=== PATIENT | male | born 2000 | race Caucasian/White ===

== ENCOUNTER 2019-01-11 08:31 | Emergency (ER) | payer OTHER ==
[~2019-01-11] VITALS: Ht 182.9 cm; Wt 88.0 kg
[~2019-01-11 08:31] MED LIST: LEVE-5 PO
[2019-01-11 08:34] VITALS: Ht 182.9 cm; Wt 88.0 kg
[2019-01-11] MEDS ORDERED: LEVETIRACETAM 1000 MG (PMX) 100 ML IVPB STA (08:48)
[2019-01-11] MEDS ORDERED: SOD CHLORIDE 0.9% 1,000 ML IV STA (08:48)
[2019-01-11] MEDS ORDERED: ACETAMINOPHEN 325 MG TAB PO STA (08:48)
[2019-01-11] MEDS ORDERED: ONDANSETRON 4 MG INJ IV STA (08:51)
[2019-01-11] MEDS ORDERED: LIDOCAINE 1% (MDV) 20 ML INJ INJ ONE (09:00)
[2019-01-11] MEDS ORDERED: LIDOCAINE 4% CR TOP ONE (09:00)
--- NOTE | 2019-01-11 09:28 | ERD ---
ER Documentation Chief Complaint Chief Complaint POSSIBLE SEIZURE, LAS RIGHT EYE LID LAC, HAD X2 SEIZURES IN JUL, NOT HAVE A HPI 18-year-old male who presents to the emergency room with possible seizure. The patient has had approximately 3 seizures this year without neurology follow-up. He apparently woke up around 7 AM and is walking to his grandmother's room when he was found on the ground postictal with gradual improvement. The patient sustained a laceration within the upper eyelid just inferior to the eyebrow of the right periorbital region. Patient is describing mild headache and dry mouth. He states that he uses marijuana but no other drugs. Patient denies any prodrome of headache chest pain or shortness of breath. No fevers or chills. No family history of seizure. ROS All systems reviewed and are negative except as per history of present illness. Medications Home Meds Active Scripts Levetiracetam* (Keppra*) 500 Mg Tablet, 500 MG PO BID for 30 Days, TAB Prov:SHANON TY MD 01/11/19 Allergies Allergies: Coded Allergies: No Known Allergy (Unverified , 01/11/19) PMhx/Soc History of Surgery: No Anesthesia Reaction: No Hx Neurological Disorder: Yes (2 previous seizure, has not been diagnosed) Hx Respiratory Disorders: No Hx Cardiac Disorders: No Hx Psychiatric Problems: No Hx Miscellaneous Medical Probl: No Hx Alcohol Use: No Hx Substance Use: Yes (marijuana) Hx Tobacco Use: No Smoking Status: Never smoker FmHx Family History: No diabetes Physical Exam Vitals Vital Signs Date Temp Pulse Resp B/P (MAP) Pulse Ox O2 O2 Flow FiO2 Time Delivery Rate 01/11/19 98.1 76 18 130/79 99 08:34 (96) Physical Exam Airway is intact Bilateral breath sounds Strong distal pulses No obvious deficits General: Well developed, well nourished, no acute distress Head: Superficial laceration approximately 2 cm obliquely to the upper eyelid just inferior to the eyebrow of the right periorbital region. The base of the wound is easily visualized. No foreign body. Eyes: Pupils equally reactive, EOM intact ENT: Moist mucous membranes Neck: Supple, no lymphadenopathy, No midline tenderness, deformities, step-offs to the cervical spine, full active and passive range of motion without midline pain. Respiratory: Lungs clear bilaterally, no distress, no chest wall tenderness, no crepitus Cardiovascular: RRR, no murmurs, rubs, or gallops Abdominal: Soft, non-tender, non-distended, no peritoneal signs, pelvis is stable : Deferred MSK: No edema, no unilateral swelling, 5/5 strength, no midline tenderness deformities or step-offs to the thoracolumbar spine Neurologic: Alert and oriented, moving all extremities, normal speech, no focal weakness, no cerebellar signs Skin: No ecchymoses or bruising to the chest or abdomen Psych: Normal mood Result Diagram: 01/11/1990001/11/19900 Results 24 hrs Laboratory Tests Test 01/11/19 09:01 White Blood Count 9.0 10^3/ul Red Blood Count 5.41 10^6/ul Hemoglobin 15.8 g/dl Hematocrit 46.4 % Mean Corpuscular Volume 85.8 fl Mean Corpuscular Hemoglobin 29.2 pg Mean Corpuscular Hemoglobin Concent 34.1 g/dl Red Cell Distribution Width 11.9 % Platelet Count 235 10^3/UL Mean Platelet Volume 8.7 fl Immature Granulocytes % 0.400 % Neutrophils % 67.2 % Lymphocytes % 21.5 % Monocytes % 7.5 % Eosinophils % 3.0 % Basophils % 0.4 % Nucleated Red Blood Cells % 0.0 /100WBC Immature Granulocytes # 0.040 10^3/ul Neutrophils # 6.0 10^3/ul Lymphocytes # 1.9 10^3/ul Monocytes # 0.7 10^3/ul Eosinophils # 0.3 10^3/ul Basophils # 0.0 10^3/ul Nucleated Red Blood Cells # 0.0 10^3/ul Sodium Level 141 mmol/L Potassium Level 4.1 mmol/L Chloride Level 104 mmol/L Carbon Dioxide Level 28 mmol/L Anion Gap 9 Blood Urea Nitrogen 16 mg/dl Creatinine 1.09 mg/dl Est Glomerular Filtrat Rate mL/min > 60 mL/min Glucose Level 101 mg/dl Calcium Level 9.9 mg/dl Ethyl Alcohol Level < 10.0 mg/dl Current Medications Medications Dose Sig/Stefanie Start Time Status Last (Trade) Ordered Route PRN Stop Time Admin Dose Reason Admin Sodium 1,000 ml @ Q1H STAT 01/11/19 DC 01/11/19 Chloride 1,000 mls/hr IV 08:48 01/11/19 09:06 09:47 650 mg ONCE STAT 01/11/19 DC 01/11/19 Acetaminophen PO 08:48 01/11/19 09:07 (Tylenol 08:52 Tab) Lidocaine ONCE ONCE 01/11/19 DC (Xylocaine INJ 09:00 01/11/19 1% (Mdv) 20 09:01 ml) 100 ml @ ONCE STAT 01/11/19 DC Levetiracetam 400 mls/hr IVPB 08:48 01/11/19 09:02 Ondansetron 4 mg ONCE STAT 01/11/19 DC 01/11/19 HCl (Zofran IV 08:51 01/11/19 09:07 Inj) 08:52 Lidocaine 1 applic ONCE ONCE 01/11/19 DC 01/11/19 (Lmx 4% Plus) TOP 09:00 01/11/19 09:07 09:01 Procedures/MDM EKG, MONITORS, & DIAGNOSTIC IMAGING: EKG: I reviewed and interpreted a 12-lead EKG. Rhythm: Normal sinus rhythm, normal QRS and QTc ST Changes: No contiguous ST segment elevations T waves: No contiguous T wave inversions Impression: No evidence of acute cardiac ischemia CT brain: No acute process per radiologist read CT facial bone: no acute process per radiologist read PROCEDURES: Laceration Note: Location: Right periorbital region The patient was verbally consented prior to procedure and understands the risks, benefits, and alternatives. The patient is agreeable to procedure and has given verbal consent. Length: 2.0 cm Irrigation: Thorough irrigation was performed with pressure is normal saline Inspection: There is no evidence of deep tissue or structural injury, no evidence of foreign bodies Anesthesia: LMX cream Repair: Single layer repair using 5.0 Prolene a total of 3 sutures with excellent approximation. A clean dressing was applied. The patient tolerated the procedure well with no complications. LAB INTERPRETATION: I reviewed the laboratory testing and it shows no evidence of acute process MEDICAL DECISION MAKING: patient presents to the emergency room with what appears to be a seizure. This is now his third seizure within the first part of this year. The patient does not have outpatient follow-up with a neurologist. This seems to be consistent with a primary seizure disorder. Initiation of outpatient oral medication will be reasonable. The patient will benefit from Keppra given low risk profile. Patient has sustained a laceration to the right periorbital region. CT imaging of the head and facial bones will be reasonable given evidence of blunt trauma. The patient does not meet high-risk criteria and based on NEXUS cervical spine criteria there is no indication for cervical spine imaging at this time. Tetanus is up-to-date. ER COURSE: * Seizure precautions initiated. Patient loaded with a gram of Keppra * Localized wound care provided and laceration repair as documented above. * Patient given Tylenol for his headache. * Lapse of consciousness document filled out * Patient informed the needs to follow-up with a neurologist. * Laboratory testing and diagnostic imaging was unrevealing. The patient remains at baseline. Patient is safe for discharge. * Suture removal in 5 days CONSULTATION: None DISPOSITION PLAN: The patient does not have an identifiable emergent medical condition that warrants inpatient hospitalization at this time. The patient is deemed safe for discharge with outpatient follow-up. We discussed follow up with the patient's primary care doctor within 24 to 48 hours as needed. We also discussed return to the emergency room for worsening symptoms or worsening condition. Outpatient referral: Neurology Discharge Medications: Keppra 500 twice daily Departure Diagnosis: Primary Impression: Seizure disorder Additional Impression: Eyelid laceration, right Encounter type: initial encounter Qualified Codes: S01.111A - Laceration without foreign body of right eyelid and periocular area, initial encounter Condition: Stable SHANON TY MD Jan 11, 2019 09:28
[2019-01-11 10:45] VITALS: BP 113/78; PULSE 50; RESP 18
== END 2019-01-11 10:48 | disposition home or self-care (01) ==
LOC: E/R 08:31
DX: S01.111A Laceration without foreign body of right eyelid and periocular area, initial encounter (principal); G40.909 Epilepsy, unspecified, not intractable, without status epilepticus; R40.2142 Coma scale, eyes open, spontaneous, at arrival to emergency department; R40.2362 Coma scale, best motor response, obeys commands, at arrival to emergency department; R40.2252 Coma scale, best verbal response, oriented, at arrival to emergency department; X58.XXXA Exposure to other specified factors, initial encounter; Y92.9 Unspecified place or not applicable
CPT/HCPCS: 12011; 36415; 70450; 70486; 80048; 80307; 85025; 93005; 96374; J1953; J2405; J7030; Z7502; Z7610